=== PATIENT | female | born 1985 | race Caucasian/White ===

== ENCOUNTER 2018-04-09 19:42 | Inpatient (IN) ==
[2018-04-09] MEDS ORDERED: ONDANSETRON 4 MG/2 ML VIAL IV PRN (19:54)
[2018-04-09] MEDS ORDERED: MEPERIDINE 50 MG/1 ML VIAL IV PRN (19:54)
[2018-04-09 20:19] LABS: Basophils % 0.4 % (0.0-0.8); Eosinophils # 0.1 10*3/uL (0.0-0.87); Hematocrit 36.2 VOL% (35.7-47.0); Hemoglobin 12.3 GM/DL (12.0-16.0); Immature Granulocytes % 0.2 %; Immature Granulocytes Absolute 0.02 #; Lymphocytes # 2.8 10*3/uL (1.4-4.0); Mean Corpuscular Hemoglobin 30 PG (27-34); Mean Corpuscular Volume 89.6 FL (87-102); Mean Platelet Volume 10.8 FL (9.6-12.0); Monocytes # 0.5 10*3/uL (0.11-0.8); Neutrophils # 6.7 10*3/uL (1.4-7.4); Neutrophils % 65.4 % (38.7-73.9); Platelet Count 279 T/CUMM (130-400); Red Blood Count 4.04 MC/CUMM (3.8-5.5); White Blood Count 10.2 T/CUMM (4-12)
[2018-04-09 20:47] LABS: Alanine Aminotransferase 14 U/L (13-56); Albumin 2.8 G/DL (3.4-5.0); Alkaline Phosphatase 170 U/L (45-117); Aspartate Amino Transferase 14 U/L (0-37); Bilirubin,Total < 0.39 MG/DL (0.2-1.0); Blood Urea Nitrogen 9 MG/DL (7-18); Glucose 129 MG/DL (74-106); Osmolality,Calculated 281.3 MOS/KG (273-304); Potassium 3.5 MMOL/L (3.5-5.1); Sodium 141 MMOL/L (136-145); Total Protein 6.4 G/DL (6.4-8.3)
[2018-04-09] MEDS: LACTATED RINGERS 1,000 ML IV SCH (23:33)
[2018-04-09] MEDS ORDERED: AMPICILLIN 2,000 MG VIAL ONE (23:36)
[2018-04-09] MEDS ORDERED: CITRIC ACID/SODIUM CITRATE 30 ML UDCUP ONE (23:37)
[2018-04-09] MEDS: AMPICILLIN INJ 2,000 MG in SODIUM CHLORIDE 0.9% 100 ML IV SCH (23:40)
[2018-04-09] MEDS: BUTORPHANOL 2 MG/ML VIAL IV PRN (23:40)
[2018-04-10] MEDS: BUTORPHANOL 2 MG/ML VIAL IV PRN (02:43)
[2018-04-10] MEDS: AMPICILLIN INJ 2,000 MG in SODIUM CHLORIDE 0.9% 100 ML IV SCH ×2 (03:44→11:26)
[2018-04-10] MEDS ORDERED: PROMETHAZINE 25 MG/1 ML VIAL IM ONE (04:28)
[2018-04-10] MEDS ORDERED: FAMOTIDINE 20 MG/2 ML VIAL IV ONE (04:28)
[2018-04-10] MEDS ORDERED: ePHEDrine 50 MG/ML AMP IV PRN (04:28)
[2018-04-10] MEDS ORDERED: hydrOXYzine HCL 25 MG/1 ML VIAL IM PRN (04:28)
[2018-04-10] MEDS ORDERED: diphenhydrAMINE 50 MG/1 ML VIAL IV PRN ×2 (04:28)
[2018-04-10] MEDS ORDERED: LACTATED RINGERS 1,000 ML IV ONE (04:28)
[2018-04-10] MEDS ORDERED: CITRIC ACID/SODIUM CITRATE 30 ML UDCUP PO ONE (04:28)
[2018-04-10] MEDS: fentaNYL 2 MCG/ROPIV 0.2% EPID 150 ML EPIDURAL SCH ×2 (05:36→23:49)
[2018-04-10] MEDS ORDERED: OXYTOCIN/LR 20 UNIT/1,000 ML BAG IV SCH (06:30)
[2018-04-10 07:40] LABS: Apearance,Urine CLEAR (Clear); Bilirubin,Urine Negative (Negative); Blood, Urine Large mg/dL (Negative); Calcium Oxalate Crystals,Urine Occasional /HPF (Few); Glucose,Urine (UA) Negative (Negative); Ketones,Urine Negative (Negative); Mucus,Urine Occasional /LPF (Occasional); Nitrite,Urine Negative (Negative); Protein,Urine Negative; RBC,Urine 24 /HPF (0-4); Squamous Epithelial Cell,Urine Occasional /HPF (0-10); Urine Color Yellow (Yellow); Urine Specific Gravity 1.018 (1.001-1.035); Urine Urobilinogen < 2.0 EU/DL (0.2-1.0); WBC,Urine 2 /HPF (0-6)
[2018-04-10] MEDS: LACTATED RINGERS 1,000 ML IV SCH (11:25)
[2018-04-10] MEDS ORDERED: miSOPROStol 200 MCG TABLET ONE (15:09)
[2018-04-10] MEDS ORDERED: ACETAMINOPHEN 325 MG TABLET PO PRN (16:09)
[2018-04-10] MEDS ORDERED: BENZOCAINE 20%/MENTHOL 0.5% SPRAY 56 GM CAN TOP PRN (16:09)
[2018-04-10] MEDS ORDERED: WITCH HAZEL PADS 100/JAR TOP PRN (16:09)
[2018-04-10] MEDS ORDERED: oxyCODONE/ACETAMINOPHEN 5-325 MG TABLET PO PRN (16:09)
[2018-04-10] MEDS ORDERED: RHO(D) IMMUNE GLOBULIN 300 MCG SYRINGE IM ONE (16:09)
[2018-04-10] MEDS ORDERED: DIPH/TET/ACEL PERT BOOSTER VACCINE 0.5 ML VIAL IM ONE (16:09)
[2018-04-10] MEDS ORDERED: ONDANSETRON 4 MG/2 ML VIAL IV PRN (16:09)
[2018-04-10] MEDS ORDERED: MEASLES/MUMPS/RUBELLA VACCINE 0.5 ML VIAL SUBCUT ONE (16:09)
[2018-04-10] MEDS ORDERED: OXYTOCIN/LR 20 UNIT/1,000 ML BAG IV ONE (16:09)
[2018-04-10] MEDS ORDERED: LANOLIN 50% CREAM 0.3 OZ TUBE TOP PRN (16:09)
[2018-04-10] MEDS ORDERED: BISACODYL 10 MG SUPP RECTAL PRN (16:09)
[2018-04-10] MEDS ORDERED: HYDROCORTISONE 2.5% RECTAL CREAM 30 GM TUBE TOP PRN (16:09)
[2018-04-10] MEDS: IBUPROFEN 800 MG TABLET PO PRN ×2 (18:03→23:43)
[2018-04-10] MEDS: DOCUSATE SODIUM 100 MG CAPSULE PO SCH (21:29)
[2018-04-10] MEDS: oxyCODONE/ACETAMINOPHEN 5-325 MG TABLET PO PRN (22:31)
[2018-04-11] MEDS: IBUPROFEN 800 MG TABLET PO PRN ×3 (05:40→22:27)
[2018-04-11 07:00] LABS: Basophils % 0.3 % (0.0-0.8); Eosinophils # 0.1 10*3/uL (0.0-0.87); Eosinophils % 1.1 % (0.00-10.9); Hematocrit 31.1 VOL% (35.7-47.0); Immature Granulocytes % 0.5 %; Immature Granulocytes Absolute 0.05 #; Lymphocytes # 2.4 10*3/uL (1.4-4.0); Lymphocytes % 23.3 % (21.3-54.2); Mean Corpuscular HGB Conc 35.4 GM/DL (32-36); Mean Corpuscular Hemoglobin 31 PG (27-34); Mean Corpuscular Volume 86.4 FL (87-102); Mean Platelet Volume 10.4 FL (9.6-12.0); Monocytes # 0.6 10*3/uL (0.11-0.8); Monocytes % 5.9 % (1.7-12.7); Neutrophils # 7.2 10*3/uL (1.4-7.4); Neutrophils % 68.9 % (38.7-73.9); Platelet Count 220 T/CUMM (130-400); Red Cell Distribution Width 13.1 % (9.3-17.3); White Blood Count 10.4 T/CUMM (4-12)
[2018-04-11] MEDS: DOCUSATE SODIUM 100 MG CAPSULE PO SCH ×2 (09:43→20:34)
[2018-04-11] MEDS: oxyCODONE/ACETAMINOPHEN 5-325 MG TABLET PO PRN (20:34)
[2018-04-12 08:21] VITALS: BP 145/89
[2018-04-12 08:38] LABS: Apearance,Urine Slightly Hazy (Clear); Bilirubin,Urine Negative (Negative); Blood, Urine Large mg/dL (Negative); Glucose,Urine (UA) Negative (Negative); Ketones,Urine Negative (Negative); Mucus,Urine Occasional /LPF (Occasional); Nitrite,Urine Negative (Negative); Protein,Urine 30 MG/DL; RBC,Urine 181 /HPF (0-4); Squamous Epithelial Cell,Urine Occasional /HPF (0-10); Urine Color Yellow (Yellow); Urine Specific Gravity 1.006 (1.001-1.035); Urine Urobilinogen < 2.0 EU/DL (0.2-1.0); WBC,Urine 41 /HPF (0-6)
[2018-04-12] MEDS: DOCUSATE SODIUM 100 MG CAPSULE PO SCH (08:58)
[2018-04-12] MEDS ORDERED: NITROFURANTOIN MACRO/MONO 100 MG CAPSULE PO SCH (21:00)
== END 2018-04-12 11:15 | disposition home or self-care (01) | DRG 775 ==
LOC: N.LDOUT 19:42 → N.LD 19:45 → N.OB 04-10 18:10
PROVIDERS: ADMIT Obstetrics & Gynecology; ATTEND Obstetrics & Gynecology

== ENCOUNTER 2019-11-15 04:40 | Inpatient (IN) ==
[2019-11-15] MEDS ORDERED: MEPERIDINE 50 MG/1 ML VIAL IV PRN (04:46)
[2019-11-15] MEDS ORDERED: BUTORPHANOL 2 MG/ML VIAL IV PRN (04:46)
[2019-11-15] MEDS ORDERED: ONDANSETRON 4 MG/2 ML VIAL IV PRN (04:46)
[2019-11-15] MEDS ORDERED: AMPICILLIN INJ 2,000 MG in SODIUM CHLORIDE 0.9% 100 ML IV ONE (04:48)
[2019-11-15] MEDS ORDERED: OXYTOCIN/LR 20 UNIT/1,000 ML BAG IV SCH (05:00)
[2019-11-15] MEDS: LACTATED RINGERS 1,000 ML IV SCH ×2 (05:19→19:12)
[2019-11-15 05:38] LABS: Basophils % 0.4 % (0.0-0.8); Eosinophils # 0.1 10*3/uL (0.0-0.87); Eosinophils % 1.2 % (0.00-10.9); Hematocrit 32.8 VOL% (35.7-47.0); Hemoglobin 11.2 GM/DL (12.0-16.0); Immature Granulocytes % 0.4 %; Immature Granulocytes Absolute 0.03 #; Lymphocytes # 2.2 10*3/uL (1.4-4.0); Lymphocytes % 28.6 % (21.3-54.2); Mean Corpuscular HGB Conc 34.1 GM/DL (32-36); Mean Corpuscular Volume 89.6 FL (87-102); Mean Platelet Volume 10.6 FL (9.6-12.0); Monocytes % 7.4 % (1.7-12.7); Platelet Count 240 T/CUMM (130-400); Red Blood Count 3.66 MC/CUMM (3.8-5.5); Red Cell Distribution Width 13.3 % (9.3-17.3); White Blood Count 7.6 T/CUMM (4-12)
[2019-11-15 06:10] LABS: Alanine Aminotransferase 12 U/L (13-56); Albumin 2.4 G/DL (3.4-5.0); Alkaline Phosphatase 110 U/L (45-117); Aspartate Amino Transferase 14 U/L (0-37); Bilirubin,Total < 0.39 MG/DL (0.2-1.0); Blood Urea Nitrogen 7 MG/DL (7-18); Calcium 8.4 MG/DL (8.5-10.1); Estimated Glom Filtration Rate 141 ML/MIN; Glucose 64 MG/DL (74-106); Osmolality,Calculated 274.4 MOS/KG (273-304)
[2019-11-15] MEDS ORDERED: hydrOXYzine HCL 25 MG/1 ML VIAL IM PRN (07:54)
[2019-11-15] MEDS ORDERED: NALOXONE 0.4 MG/ML VIAL IV PRN (07:54)
[2019-11-15] MEDS ORDERED: ONDANSETRON 4 MG/2 ML VIAL IV ONE (07:54)
[2019-11-15] MEDS ORDERED: diphenhydrAMINE 50 MG/1 ML VIAL IV PRN ×2 (07:54)
[2019-11-15] MEDS ORDERED: FAMOTIDINE 20 MG/2 ML VIAL IV ONE (07:54)
[2019-11-15] MEDS ORDERED: LACTATED RINGERS 1,000 ML IV ONE (07:54)
[2019-11-15] MEDS ORDERED: CITRIC ACID/SODIUM CITRATE 30 ML UDCUP PO ONE (07:54)
[2019-11-15] MEDS ORDERED: PROMETHAZINE 25 MG/1 ML VIAL IM ONE (07:54)
[2019-11-15] MEDS ORDERED: ePHEDrine 50 MG/ML AMP IV PRN (07:54)
[2019-11-15] MEDS: AMPICILLIN INJ 1,000 MG in SODIUM CHLORIDE 0.9% 100 ML IV SCH ×4 (09:54→22:18)
[2019-11-15] MEDS: fentaNYL 2 MCG/ROPIV 0.2% EPID 100 ML EPIDURAL SCH ×2 (11:36→20:35)
[2019-11-15 13:49] LABS: Apearance,Urine CLEAR (Clear); Bilirubin,Urine Negative (Negative); Blood, Urine Negative (Negative); Glucose,Urine (UA) Negative (Negative); Ketones,Urine Negative (Negative); Mucus,Urine Occasional /LPF (Occasional); Nitrite,Urine Negative (Negative); Protein,Urine Negative; RBC,Urine 1 /HPF (0-4); Squamous Epithelial Cell,Urine Occasional /HPF (0-10); Urine Color Yellow (Yellow); Urine Specific Gravity 1.016 (1.001-1.035); Urine Urobilinogen < 2.0 EU/DL (0.2-1.0); WBC,Urine 1 /HPF (0-6)
[2019-11-15] MEDS ORDERED: miSOPROStoL 200 MCG TABLET ONE (20:43)
[2019-11-15] MEDS ORDERED: LIDOCAINE 1% 50 ML VIAL ONE (20:43)
[2019-11-15] MEDS ORDERED: METHYLERGONOVINE 0.2 MG/1 ML AMP ONE (20:44)
[2019-11-15] MEDS ORDERED: TRANEXAMIC ACID 1,000 MG/10 ML VIAL ONE (20:44)
[2019-11-15] MEDS ORDERED: OXYTOCIN/LR 20 UNIT/1,000 ML BAG IV ONE (20:44)
[2019-11-15] MEDS ORDERED: CARBOPROST TROMETHAMINE 250 MCG/ML AMP IM ONE (20:44)
[2019-11-15] MEDS ORDERED: HYDROCORTISONE 2.5% RECTAL CREAM 30 GM TUBE TOP PRN (23:58)
[2019-11-15] MEDS ORDERED: BISACODYL 10 MG SUPP RECTAL PRN (23:58)
[2019-11-15] MEDS ORDERED: RHO(D) IMMUNE GLOBULIN 300 MCG SYRINGE IM ONE (23:58)
[2019-11-15] MEDS ORDERED: ACETAMINOPHEN 325 MG TABLET PO PRN (23:58)
[2019-11-15] MEDS ORDERED: DIPH/TET/ACEL PERT BOOSTER VACCINE 0.5 ML VIAL IM ONE (23:58)
[2019-11-15] MEDS ORDERED: BENZOCAINE 20%/MENTHOL 0.5% SPRAY 56 GM CAN TOP PRN (23:58)
[2019-11-15] MEDS ORDERED: MEASLES/MUMPS/RUBELLA VACCINE 0.5 ML VIAL SUBCUT ONE (23:58)
[2019-11-15] MEDS ORDERED: WITCH HAZEL PADS 100/JAR TOP PRN (23:58)
[2019-11-15] MEDS ORDERED: LANOLIN 50% CREAM 0.3 OZ TUBE TOP PRN (23:58)
[2019-11-16] MEDS: IBUPROFEN 800 MG TABLET PO PRN ×4 (01:19→23:39)
[2019-11-16] MEDS: AMPICILLIN INJ 1,000 MG in SODIUM CHLORIDE 0.9% 100 ML IV SCH (01:37)
[2019-11-16 06:13] LABS: Basophils % 0.2 % (0.0-0.8); Eosinophils # 0.1 10*3/uL (0.0-0.87); Eosinophils % 0.4 % (0.00-10.9); Hematocrit 33.8 VOL% (35.7-47.0); Hemoglobin 11.4 GM/DL (12.0-16.0); Immature Granulocytes % 0.5 %; Immature Granulocytes Absolute 0.07 #; Lymphocytes # 2.6 10*3/uL (1.4-4.0); Lymphocytes % 18.6 % (21.3-54.2); Mean Corpuscular HGB Conc 33.7 GM/DL (32-36); Mean Corpuscular Volume 88.7 FL (87-102); Mean Platelet Volume 11.1 FL (9.6-12.0); Monocytes % 5.7 % (1.7-12.7); Neutrophils % 74.6 % (38.7-73.9); Platelet Count 233 T/CUMM (130-400); Red Blood Count 3.81 MC/CUMM (3.8-5.5); Red Cell Distribution Width 13.4 % (9.3-17.3); White Blood Count 14.2 T/CUMM (4-12)
[2019-11-16] MEDS: DOCUSATE SODIUM 100 MG CAPSULE PO SCH ×2 (07:25→21:38)
[2019-11-16 10:53] LABS: Apearance,Urine CLEAR (Clear); Bacteria,Urine Occasional /HPF (Few); Bilirubin,Urine Negative (Negative); Blood, Urine Large mg/dL (Negative); Glucose,Urine (UA) Negative (Negative); Ketones,Urine Negative (Negative); Nitrite,Urine Negative (Negative); Protein,Urine Negative; RBC,Urine 1 /HPF (0-4); Squamous Epithelial Cell,Urine Occasional /HPF (0-10); Urine Color Straw (Yellow); Urine Specific Gravity 1.003 (1.001-1.035); Urine Urobilinogen < 2.0 EU/DL (0.2-1.0); WBC,Urine 1 /HPF (0-6)
[2019-11-17] MEDS ORDERED: BENZOCAINE/MENTHOL LOZENGE 18/BOX PO PRN (02:46)
[2019-11-17] MEDS: IBUPROFEN 800 MG TABLET PO PRN (07:26)
[2019-11-17] MEDS: DOCUSATE SODIUM 100 MG CAPSULE PO SCH (07:26)
[2019-11-17 07:53] VITALS: BP 126/66
== END 2019-11-17 13:40 | disposition home or self-care (01) | DRG 807 ==
LOC: N.LDOUT 04:40 → N.LD 04:42 → N.OB 11-16 01:55
PROVIDERS: ADMIT Obstetrics & Gynecology; ATTEND Obstetrics & Gynecology